=== PATIENT | female | born 1970 | race Caucasian/White ===

== ENCOUNTER 2022-06-27 13:47 | Emergency (ER) | payer BC, SELFPAY ==
[2022-06-27 14:03] VITALS: BP 126/87; PULSE 88; RESP 16; TEMP 36.3; O2SAT 99
--- NOTE | 2022-06-27 14:17 | ED.GENADULT ---
HPI - General Adult General Chief complaint: Back Pain/Injury Stated complaint: unknown Time Seen by Provider: 06/27/22 14:17 Source: patient Mode of arrival: ambulatory Limitations: no limitations History of Present Illness HPI narrative: 52-year-old female patient presents to [facility] complaints of left hip and left leg pain are patient states the pain is about weeks. Patient states she has got a chiropractor several times, using ice and heat therapy, size as well states pain [id number] ibuprofen and naproxen without relief of pain. Denies any numbness or tingling going down the legs. Denies any loss of bowel or bladder control. Denies any denies any saddle anesthesia. Denies any recent injury or any physical activity that could have cause the pain that she is aware of. Related Data Home Medications Medication Instructions Recorded Confirmed levothyroxine 25 mcg tablet mcg 06/27/22 omeprazole 20 mg capsule,delayed mg 06/27/22 release semaglutide (weight loss) 0.25 mg subcut 06/27/22 mg/0.5 mL subcutaneous pen injector (Wegovy) spironolactone 100 mg tablet mg 06/27/22 venlafaxine 75 mg capsule,extended mg PO 06/27/22 release 24 hr Allergies Allergy/AdvReac Type Severity Reaction Status Date / Time No Known Allergies Allergy Mild Verified 06/27/22 13:51 Review of Systems Review of Systems: CONSTITUTIONAL: Denies fever, chills, or sweats. EYES: Denies visual changes, redness, or discharge. ENT: Denies rhinorrhea, congestion, sore throat, or otalgia. CARDIOVASCULAR: Denies chest pain, palpitations, or edema. RESPIRATORY: Denies cough or dyspnea. GASTROINTESTINAL: Denies abdominal pain, nausea, vomiting, or diarrhea. GENITOURINARY: Denies dysuria or hematuria. SKIN: Denies rash or itching. MUSCULOSKELETAL: Denies back pain, joint pain, or myalgia. Positive left-sided buttocks and left-sided hip and leg pain x3 weeks NEUROLOGIC: Denies headache, numbness, or weakness. PSYCHIATRIC: Denies anxiety or depression. [facility] Past Medical History Medical History (Updated 06/27/22 @ 14:29 by DRE Ruiz) Pneumonia Comments At the time of my signature I agree with nursing past medical history, surgical, social, and family history. There is no relevant family history pertinent to the presenting complaint. Exam Narrative: GENERAL: Well-appearing, well-nourished, and in no acute distress. HEAD: Normocephalic, atraumatic. EYES: PERRLA and EOMI. ENT: Nares clear, no rhinorrhea or epistaxis. Mucous membranes moist. NECK: Supple. No lymphadenopathy CHEST: Clear to auscultation. No respiratory distress. HEART: Regular rate and rhythm. No murmur heard. Normal peripheral pulses. ABDOMEN: Soft, nontender, nondistended, normal active bowel sounds. EXTREMITIES: Normal range of motion. No edema. BACK: Patient is able to ambulated without assistance. Pt is seated on the stretcher in no obvious distress. No surface trauma noted. No muscle tenderness to Palpation. No spasm or mass. No step-offs or deformity noted to the cervical, thoracic or lumbar spine to firm Palpation at the midline. No CVA tenderness to percussion. No saddle anesthesia. ROM: able to stand erect. Normal flexion but has pain to the left hip and buttocks when coming up , No pain withextension, Lateral bending and rotation without limitation or complaint of pain. negative straight leg raise on bilateral sides. Patient does have tenderness on palpation over the sciatic nerve that radiates down her leg. SKIN: Warm, dry, no rash. NEURO: No focal deficits. Alert and oriented x3. Course Course Level of Care: Express Care Visit Vital Signs Vital signs: Vital Signs Temperature 36.3 C L 06/27/22 14:03 Pulse Rate 88 06/27/22 14:03 Respiratory Rate 16 06/27/22 14:03 Blood Pressure 126/87 06/27/22 14:03 Pulse Oximetry 99 06/27/22 14:03 Oxygen Delivery Room Air 06/27/22 14:03 Temperature 36.3 C L
== END 2022-06-27 14:30 | disposition home or self-care (01) ==
PROVIDERS: Emergency Provider Nurse Practitioner Family; PCP Physician Assistant
DX: M54.32 Sciatica, left side (principal)
CPT/HCPCS: 99213; G0463

== ENCOUNTER 2022-10-25 16:27 | Emergency (ER) | payer BC, SELFPAY ==
--- NOTE | 2022-10-25 16:35 | ED.EAR ---
HPI - Ear Problem General Chief complaint: Ear Stated complaint: sorethroat,ear pain Time Seen by Provider: 10/25/22 16:47 Source: patient and RN notes reviewed Mode of arrival: ambulatory Limitations: no limitations History of Present Illness HPI Narrative: 52-year-old female presents with concern for 4 day history of sore throat and ear pain. She reports history of your infections. Reports she has been taking ibuprofen. MD Complaint: ear pain Related Data Home Medications Medication Instructions Recorded Confirmed levothyroxine 25 mcg tablet 25 mcg PO DAILY 06/27/22 10/25/22 omeprazole 20 mg capsule,delayed 20 mg PO DAILY 06/27/22 10/25/22 release semaglutide (weight loss) 0.25 0.5 mg subcut WEEKLY 06/27/22 10/25/22 mg/0.5 mL subcutaneous pen injector (Wegovy) spironolactone 100 mg tablet 100 mg PO DAILY 06/27/22 10/25/22 venlafaxine 75 mg capsule,extended 75 mg PO DAILY 06/27/22 10/25/22 release 24 hr meloxicam 15 mg tablet mg 10/25/22 Allergies Allergy/AdvReac Type Severity Reaction Status Date / Time No Known Allergies Allergy Mild Verified 06/27/22 13:51 Review of Systems Review of Systems: CONSTITUTIONAL: Denies malaise, chills, sweats, or fever. EYES: Denies visual changes, redness, or discharge. ENT: Reports rhinorrhea, congestion, sore throat. Reports bilateral ear pain CARDIOVASCULAR: Denies chest pain, palpitations, or edema. RESPIRATORY: Denies cough. Denies dyspnea. GASTROINTESTINAL: Denies abdominal pain, nausea, vomiting, diarrhea SKIN: Denies rash or itching. MUSCULOSKELETAL: Denies myalgia. NEUROLOGIC: Denies headache. All systems reviewed & are unremarkable except as noted in HPI and below [facility] Past Medical History Medical History (Updated 10/25/22 @ 17:02 by Clarissa Rossi NP) Pneumonia Comments At time of signature, agree with nursing past medical, surgical, social and family history. There is no relevant family history pertinent to the presenting complaint Exam Narrative: GENERAL: Well-appearing, well-nourished, and in no acute distress. HEAD: Normocephalic EYES: PERRLA, conjunctivae clear ENT: Nares clear, turbinates edematous, clear discharge. Mucous membranes moist. TM pearly lloyd with sharp light reflex bilaterally; no tragal tenderness. Oropharynx not erythematous without lesions. Tonsils not enlarged and without exudate, no drooling, no hoarseness, no trismus, uvula midline. NECK: Supple. No lymphadenopathy CHEST: Clear to auscultation, breath sounds equal. No wheezing, rhonchi, rales, or stridor. No respiratory distress, speaks in full sentences. HEART: Regular rate and rhythm. No murmur heard. SKIN: Warm, dry, no rash. NEURO: Alert and oriented x3. PSYCH: Normal mood and affect Course Course Emergency Course: Patient is aware of diagnosis, understands and agrees to treatment plan. Anticipatory guidance given. Patient agrees to follow-up as directed and is aware of reasons to seek care at the emergency department. Portions of this record may have been created with voice recognition software Level of Care: Express Care Visit Vital Signs Vital signs: Reviewed. Medical Decision Making MDM Narrative Medical decision making narrative: Differential diagnosis considered: Torres virus, strep pharyngitis, allergic rhinitis, upper respiratory tract infection, sinusitis, rhinosinusitis, nasopharyngitis. viral pharyngitis, otitis media, otitis externa, otitis effusion, cerumen impaction, foreign body. Exam findings show no acute concerns or changes; patient is non-toxic appearing and is in no distress. Patient is appropriate for outpatient treatment and follow-up. Critical Care Time Critical Care Time Critical Care Time: No Discharge Plan Discharge Clinical Impression: Upper respiratory infection Patient Disposition: Home, Self-Care Condition: Stable Instructions: Upper Respiratory Infection (ED) Additional Instructions: Your rap
[2022-10-25 16:48] VITALS: BP 120/86; PULSE 84; RESP 18; TEMP 36.4; O2SAT 99
[2022-10-25 16:51] VITALS: BP 120/86; PULSE 84; RESP 18; TEMP 36.4; O2SAT 99
== END 2022-10-25 17:06 | disposition home or self-care (01) ==
PROVIDERS: Emergency Provider Nurse Practitioner; PCP Physician Assistant
DX: J06.9 Acute upper respiratory infection, unspecified (principal)
CPT/HCPCS: 87081; 87880; 99213; G0463